=== PATIENT | male | born 1950 | race Caucasian/White ===

== ENCOUNTER 2025-01-28 05:34 | Day surgery (SDC) | payer OTHER ==
[2025-01-26 08:58] VITALS: BMI 29.2
[2025-01-28] MEDS ORDERED: LIDOCAINE 1% (10MG/ML) FOR IV START INTRADERMA PRN (06:04)
[2025-01-28] MEDS ORDERED: fentaNYL (PF) 50 MCG/ML 2 ML AMP IVP PRN (06:04)
[2025-01-28] MEDS ORDERED: MIDAZOLAM 2 MG/2 ML VIAL IV PRN (06:04)
[2025-01-28] MEDS: IV FLUID CONTINUATION 1,000 ML IV ONE (07:00)
[2025-01-28] MEDS: ACETAMINOPHEN TAB 500 MG TAB PO PRN (07:03)
[2025-01-28] MEDS: DEXAMETHASONE SOD PHOSPHATE 4 MG/ML 1 ML VIAL IV ONE (07:04)
[2025-01-28] MEDS: HEPARIN SODIUM,PORCINE 5,000 UNIT/ML 1 ML VIAL SQ PRN (07:04)
[2025-01-28] MEDS: ONDANSETRON 4 MG/2 ML VIAL IVP ONE (07:07)
[2025-01-28] MEDS: LACTATED RINGERS 1,000 ML IV SCH (07:08)
[2025-01-28] MEDS ORDERED: NEOSTIGMINE 1 MG/ML 10 ML VIAL ONE (07:33)
[2025-01-28] MEDS ORDERED: MIDAZOLAM 2 MG/2 ML VIAL ONE (07:33)
[2025-01-28] MEDS ORDERED: SUCCINYLCHOLINE CHLORIDE 200 MG/10 ML VIAL IV ONE (07:33)
[2025-01-28] MEDS ORDERED: GLYCOPYRROLATE 0.2 MG/ML 2 ML VIAL ONE (07:33)
[2025-01-28] MEDS ORDERED: PROPOFOL 10 MG/ML 20 ML VIAL IV ONE (07:33)
[2025-01-28] MEDS ORDERED: KETAMINE HCL IN 0.9 % NACL 50 MG/5 ML SYRINGE ONE (07:33)
[2025-01-28] MEDS ORDERED: PHENYLEPHRINE 10 MG/ML VIAL ONE (07:33)
[2025-01-28] MEDS ORDERED: fentaNYL (PF) 50 MCG/ML 2 ML AMP ONE (07:33)
[2025-01-28] MEDS ORDERED: KETOROLAC 15 MG/ML 1 ML VIAL ONE (07:33)
[2025-01-28] MEDS ORDERED: LIDOCAINE 1% INJ 10MG/ML (20 ML MDV) ONE (07:33)
[2025-01-28] MEDS ORDERED: ROCURONIUM 10 MG/ML (5 ML VIAL) IV ONE (07:33)
[2025-01-28] MEDS: BUPIVACAINE (PF) 0.25% 30 ML VIAL SQ ONE (08:38)
[2025-01-28] MEDS: LACTATED RINGERS 1,000 ML IV ONE (08:39)
[2025-01-28 09:07] VITALS: TEMP 97.3
[2025-01-28] MEDS: HYDROmorphone 0.5 MG/0.5 ML SYRINGE IVP PRN (09:08)
--- NOTE | 2025-01-28 09:25 | P.OP ---
Date of Procedure: 01/28/25 Preoperative Diagnosis: Large right inguinal hernia Postoperative Diagnosis: Large right inguinal hernia Procedure(s) Performed: Open repair of large right inguinal hernia with Prolene hernia mesh system Anesthesia: YVONNEA Surgeon: Abad Bennett Estimated Blood Loss (ml): 5 Pathology: other (Hernia sac) Condition: stable Disposition: PACU Description of Procedure: DESCRIPTION OF PROCEDURE: The patient was placed in the supine position after receiving adequate anesthesia. PatientÂ´s groin was prepped and draped in the usual sterile fashion. A standard hernia incision was made and the subcutaneous tissues were divided with electrocautery. The fascia of the external oblique was exposed. A rao the fascia was made with #15 blade. The fascia was then opened with pair of Metzenbaum scissors. A Weitlaner retractor was placed in the wound and the cord structures were grasped and dissected free from the inguinal canal. A rubber Monika drain was placed around the cord structures. The hernial sac was seen on the anterior-medial portion of the cord and this was dissected free from the cord. The hernia sac was t underwent a high ligation and the specimen was sent to pathology. . Using blunt finger dissection, the preperitoneal space was dissected and then the Prolene hernial mesh plug was placed into the prepared space. The inferior leaf was expanded. The superior leaf was secured to the pubic tubercle using 2- 0 Prolene suture. The lateral portion of the superior leaf was incised and cords tied and secured to the transversalis fascia using 2-0 Prolene suture. Fascia of the external oblique was then closed using #0 Vicryl suture. The [place] drain was removed. The ScarpaÂ´s fascia was then closed with 3-0 Vicryl suture and skin was closed with david. The patient tolerated the procedure well.
[2025-01-28 10:29] VITALS: RESP 16
[2025-01-28 10:56] VITALS: BP 149/90; PULSE 72
== END 2025-01-28 11:47 | disposition home or self-care (01) ==
LOC: OR 05:34
PROVIDERS: ATTEND Surgery
DX: K40.90 Unilateral inguinal hernia, without obstruction or gangrene, not specified as recurrent (principal); I10 Essential (primary) hypertension; E78.5 Hyperlipidemia, unspecified; I25.10 Atherosclerotic heart disease of native coronary artery without angina pectoris; Z79.82 Long term (current) use of aspirin; Z79.899 Other long term (current) drug therapy; Z88.8 Allergy status to other drugs, medicaments and biological substances
CPT/HCPCS: 88302; 49505; J2250; J0330; J1644; J1100; J2710; J0690; J2405; J2003; J3010; J1885; J2704; J1171; J2371; J0665; J1596

== ENCOUNTER → 2025-03-15 | Outpatient (CLI) | payer OTHER ==
[2025-03-15 16:11] LABS: HCT 48.1 % (39.6-50.0); HGB 15.6 g/dL (13.0-17.0); MCH 29.9 pg (27.0-32.0); MCHC 32.4 g/dL (32.0-37.0); MCV 92.1 FL (80.0-97.0); Mean Platelet Volume 11.4 FL (9.5-12.2); NRBC Per 100 WBC 0 X 10*3/uL (0.00-0.01); Platelet Count 244 X 10*3/uL (140-440); RBC 5.22 X 10*6/uL (4.40-5.60); RDW 12.3 % (11.5-14.5); WBC 8.99 X 10*3/uL (4.50-10.00)
== END | disposition home or self-care (01) ==
LOC: LABPAT 08:20
PROVIDERS: ATTEND Surgery
DX: Z01.818 Encounter for other preprocedural examination (principal); K40.91 Unilateral inguinal hernia, without obstruction or gangrene, recurrent
CPT/HCPCS: 85027; 86850; 86900; 86901; 93005